=== PATIENT | female | born 1965 | race Hispanic/Latino ===

== ENCOUNTER 2020-06-20 18:08 | Emergency (ER) | payer OTHER ==
[2020-06-20] MEDS ORDERED: ONDANSETRON HCL 4 MG/2 ML VIAL ONE (18:50)
[2020-06-20 19:16] LABS: BASOPHILS % (AUTO) 0.3 % (0.0-5.0); HEMATOCRIT 34.3 % (36-48); LYMPHOCYTES % (AUTO) 8.4 % (21.0-51.0); MEAN CORPUSCULAR HEMOGLOBIN 27.9 pg (27.0-33.0); MEAN CORPUSCULAR HGB CONC 33.5 g/dL (32.0-36.0); MEAN CORPUSCULAR VOLUME 83.3 fL (79-99); MONOCYTES % (AUTO) 1.9 % (3.0-13.0); NEUTROPHILS % (AUTO) 88.9 % (40.0-77.0); PLATELET COUNT (AUTO) 231 K/uL (130-400); RED BLOOD CELL COUNT(AUTO) 4.12 MIL/uL (4.00-5.50); RED CELL DISTRIBUTION WIDTH 14.5 % (11.0-15.5); WHITE BLOOD COUNT (AUTO) 10.7 K/uL (4.8-10.8)
[2020-06-20 19:18] LABS: APPEARANCE,URINE Clear (CLEAR); BILIRUBIN,URINE Negative (NEGATIVE); COLOR,URINE Yellow (YELLOW); GLUCOSE, URINE (UA) Negative (NEGATIVE); KETONES,URINE Negative (NEGATIVE); LEUKOCYTE ESTERASE ,URINE Negative (NEGATIVE); NITRATE,URINE Negative (NEGATIVE); OCCULT BLOOD,URINE Negative (NEGATIVE); PROTEIN,URINE Negative (NEGATIVE); UROBILINOGEN,URINE 0.2 mg/dL (0.2-1.0)
[2020-06-20 19:27] LABS: CREATININE 0.7 mg/dL (0.5-1.5); POTASSIUM 3.6 mmol/L (3.5-5.1)
[2020-06-20 19:31] LABS: ALBUMIN 3.7 g/dL (3.5-5.0); BILIRUBIN,TOTAL 0.2 mg/dL (0.2-1.0); TOTAL PROTEIN, SERUM 7.1 g/dL (6.0-8.3)
[2020-06-20] MEDS ORDERED: LIDOCAINE HCL 2% VISCOUS 15 ML UDCUP ONE (19:58)
[2020-06-20] MEDS ORDERED: MAG HYDROX/AL HYDROX/SIMETH ES 30 ML SUSP UDCUP ONE (19:58)
== END 2020-06-20 21:56 | disposition home or self-care (01) ==
LOC: EDH 18:08
DX: U07.1 COVID-19 (principal); R11.0 Nausea; Z90.49 Acquired absence of other specified parts of digestive tract
CPT/HCPCS: 36415; 80053; 81003; 82150; 83690; 85025; 93005; 96374; 99285; J2405

== ENCOUNTER 2021-04-12 08:59 | Emergency (ER) | payer OTHER ==
[2021-04-12 09:35] LABS: BASOPHILS % (AUTO) 0.6 % (0.0-5.0); EOSINOPHILS % (AUTO) 3.7 % (0.0-8.0); HEMATOCRIT 36.9 % (36-48); LYMPHOCYTES % (AUTO) 20.9 % (21.0-51.0); MEAN CORPUSCULAR HEMOGLOBIN 28.6 pg (27.0-33.0); MEAN CORPUSCULAR HGB CONC 33.6 g/dL (32.0-36.0); MEAN CORPUSCULAR VOLUME 85.2 fL (79-99); MONOCYTES % (AUTO) 9.8 % (3.0-13.0); NEUTROPHILS % (AUTO) 64.5 % (40.0-77.0); PLATELET COUNT (AUTO) 246 K/uL (130-400); RED BLOOD CELL COUNT(AUTO) 4.33 MIL/uL (4.00-5.50); RED CELL DISTRIBUTION WIDTH 13.2 % (11.0-15.5); WHITE BLOOD COUNT (AUTO) 8.1 K/uL (4.8-10.8)
[2021-04-12 09:43] LABS: PROTHROMBIN TIME 10.9 SEC (9.6-11.6)
[2021-04-12 09:44] LABS: PARTIAL THROMBOPLASTIN TIME 26.2 SEC (26.3-35.5)
[2021-04-12 09:50] LABS: ALBUMIN 3.5 g/dL (3.5-5.0); BILIRUBIN,TOTAL 0.4 mg/dL (0.2-1.0); CREATININE 0.7 mg/dL (0.5-1.5); POTASSIUM 3.6 mmol/L (3.5-5.1)
[2021-04-12 09:58] LABS: B-TYPE NATRIURETIC PEPTIDE 37 pg/mL (0-100)
== END 2021-04-12 14:10 | disposition home or self-care (01) ==
LOC: EDH 08:59
DX: S86.811A Strain of other muscle(s) and tendon(s) at lower leg level, right leg, initial encounter (principal); X58.XXXA Exposure to other specified factors, initial encounter; Z90.49 Acquired absence of other specified parts of digestive tract; Y93.89 Activity, other specified; Y92.89 Other specified places as the place of occurrence of the external cause; Y99.8 Other external cause status
CPT/HCPCS: 36415; 71045; 80053; 82550; 83880; 84484; 85025; 85610; 85730; 93005; 93971

== ENCOUNTER 2022-10-31 16:06 | Emergency (ER) | payer BC, OTHER ==
[~2022-10-31] VITALS: Ht 162.6 cm; Wt 102.5 kg
[2022-10-31 16:13] VITALS: BP 157/88
[2022-10-31 17:04] LABS: BASOPHILS % (AUTO) 0.8 % (0.0-5.0); EOSINOPHILS % (AUTO) 1.9 % (0.0-8.0); HEMATOCRIT 38.8 % (36-48); LYMPHOCYTES % (AUTO) 23.2 % (21.0-51.0); MEAN CORPUSCULAR HEMOGLOBIN 28.1 pg (27.0-33.0); MEAN CORPUSCULAR HGB CONC 32.7 g/dL (32.0-36.0); MEAN CORPUSCULAR VOLUME 85.8 fL (79-99); MONOCYTES % (AUTO) 6.7 % (3.0-13.0); NEUTROPHILS % (AUTO) 67.1 % (40.0-77.0); PLATELET COUNT (AUTO) 289 K/uL (130-400); RED BLOOD CELL COUNT(AUTO) 4.52 MIL/uL (4.00-5.50)
[2022-10-31 17:16] LABS: CREATININE 0.6 mg/dL (0.5-1.5); POTASSIUM 3.7 mmol/L (3.5-5.1)
[2022-10-31 17:23] LABS: ALBUMIN 3.8 g/dL (3.5-5.0); TOTAL PROTEIN, SERUM 7.4 g/dL (6.0-8.3)
[2022-10-31] MEDS ORDERED: AMOX500C2 PO (18:50)
[2022-10-31] MEDS ORDERED: DEXAMETHASONE SOD PHOSPHATE 4 MG/ML 1ML VIAL IM ONE (19:00)
== END 2022-10-31 18:59 | disposition home or self-care (01) ==
LOC: EDH 16:06
DX: J02.0 Streptococcal pharyngitis (principal); E78.00 Pure hypercholesterolemia, unspecified; Z79.52 Long term (current) use of systemic steroids; Z90.49 Acquired absence of other specified parts of digestive tract; Z79.899 Other long term (current) drug therapy; Z20.822 Contact with and (suspected) exposure to COVID-19
CPT/HCPCS: 99284; 71045; 87635; 84484; 80053; 83880; 85025; 87880; 36415; 96372; 93005; J1100; C9803

== ENCOUNTER 2024-04-11 17:52 | Inpatient (IN) | payer BC ==
[~2024-04-11] VITALS: Ht 162.6 cm; Wt 109.5 kg
[~2024-04-11 17:52] MED LIST: AMOX500C2 PO
[2024-04-11 18:33] LABS: BASOPHILS # (AUTO) 0.07 K/uL (0.00-0.20); BASOPHILS % (AUTO) 0.5 % (0.0-5.0); EOSINOPHILS # (AUTO) 0.12 K/uL (0.00-0.70); EOSINOPHILS % (AUTO) 0.8 % (0.0-8.0); HEMATOCRIT 41.2 % (36-48); IMMATURE GRANULOCYTE ABSOLUTE 0.06 K/uL (0-1); LYMPHOCYTES % (AUTO) 14.1 % (21.0-51.0); MEAN CORPUSCULAR HEMOGLOBIN 28.6 pg (27.0-33.0); MEAN CORPUSCULAR VOLUME 86.7 fL (79-99); MONOCYTES # (AUTO) 0.9 K/uL (0.1-1.0); MONOCYTES % (AUTO) 6.6 % (3.0-13.0); NEUTROPHILS # (AUTO) 11.1 K/uL (1.8-7.7); NEUTROPHILS % (AUTO) 77.6 % (40.0-77.0); PLATELET COUNT (AUTO) 271 K/uL (130-400); RED BLOOD CELL COUNT(AUTO) 4.75 MIL/uL (4.00-5.50); RED CELL DISTRIBUTION WIDTH 13.2 % (11.0-15.5); WHITE BLOOD COUNT (AUTO) 14.4 K/uL (4.8-10.8)
[2024-04-11 18:47] LABS: CREATININE 0.7 mg/dL (0.5-1.0)
[2024-04-11 18:52] LABS: ALBUMIN 3.8 g/dL (3.5-5.0); BILIRUBIN,TOTAL 0.5 mg/dL (0.2-1.0); TOTAL PROTEIN, SERUM 7.9 g/dL (6.0-8.3)
[2024-04-11] MEDS: 0.9%NACL 1000ML 1,000 ML IV ONE (19:44)
[2024-04-11] MEDS: KETOROLAC 30MG VIAL (30MG/ML) IVP ONE (19:44)
[2024-04-11 20:06] LABS: APPEARANCE,URINE CLEAR (CLEAR); BILIRUBIN,URINE NEGATIVE (NEGATIVE); COLOR,URINE LIGHT-YELLOW (YELLOW); GLUCOSE, URINE (UA) NEGATIVE (NEGATIVE); KETONES,URINE NEGATIVE (NEGATIVE); LEUKOCYTE ESTERASE ,URINE 250 Leu/uL (NEGATIVE); NITRATE,URINE NEGATIVE (NEGATIVE); OCCULT BLOOD,URINE NEGATIVE (NEGATIVE); PROTEIN,URINE NEGATIVE (NEGATIVE); UROBILINOGEN,URINE 0.2 mg/dL (0.2-1.0)
[2024-04-11 20:10] LABS: ADD UA MICROSCOPIC YES
[2024-04-11 20:14] LABS: RBC,URINE 0-1 /HPF (0-1); SQUAMOUS EPITHELIAL CELL,UR FEW /HPF (0-2)
[2024-04-11] MEDS ORDERED: IOHEXOL-350 75 ML VIAL IV ONE (21:15)
[2024-04-11] MEDS: ZOSYN 3.375GM +NS 50ML IVPB SCH (22:00)
[2024-04-11] MEDS: ZOSYN 3.375GM+NS 50ML 50 ML ONE (22:21)
[2024-04-12] VITALS (27 sets, daily range): BP systolic 107–139; BP diastolic 49–86; PULSE 65–83; RESP 14–20; O2SAT 98–99
[2024-04-12] MEDS ORDERED: ONDANSETRON 4MG INJ IV PRN (00:30)
[2024-04-12] MEDS ORDERED: KETOROLAC 15MG/ML VIAL (15MG/ML) IV PRN (00:30)
[2024-04-12] MEDS: 0.9%NACL 1000ML 1,000 ML IV SCH (01:18)
[2024-04-12] MEDS ORDERED: GABA-529 PO (01:53)
[2024-04-12] MEDS: ZOSYN 3.375GM+NS 50ML 50 ML IV SCH (04:19)
[2024-04-12 05:59] LABS: INR <= 0.93 (0.85-1.15); PROTHROMBIN TIME 10.6 SEC (9.6-11.6)
[2024-04-12 06:00] LABS: PARTIAL THROMBOPLASTIN TIME 30.2 SEC (26.3-35.5)
[2024-04-12 06:05] LABS: BASOPHILS # (AUTO) 0.05 K/uL (0.00-0.20); BASOPHILS % (AUTO) 0.4 % (0.0-5.0); EOSINOPHILS # (AUTO) 0.11 K/uL (0.00-0.70); EOSINOPHILS % (AUTO) 0.9 % (0.0-8.0); HEMATOCRIT 36.2 % (36-48); IMMATURE GRANULOCYTE ABSOLUTE 0.03 K/uL (0-1); LYMPHOCYTES # (AUTO) 1.7 K/uL (1.0-4.8); LYMPHOCYTES % (AUTO) 14.9 % (21.0-51.0); MEAN CORPUSCULAR HEMOGLOBIN 28.6 pg (27.0-33.0); MEAN CORPUSCULAR VOLUME 84.2 fL (79-99); MONOCYTES # (AUTO) 0.8 K/uL (0.1-1.0); NEUTROPHILS # (AUTO) 8.9 K/uL (1.8-7.7); NEUTROPHILS % (AUTO) 76.5 % (40.0-77.0); PLATELET COUNT (AUTO) 210 K/uL (130-400); RED CELL DISTRIBUTION WIDTH 13.2 % (11.0-15.5); WHITE BLOOD COUNT (AUTO) 11.7 K/uL (4.8-10.8)
[2024-04-12 08:01] LABS: ERYTHROCYTE SEDIMENTATION RATE 49 MM/HR (0-30)
[2024-04-12 08:18] LABS: ALBUMIN 3.3 g/dL (3.5-5.0); BILIRUBIN,TOTAL 0.6 mg/dL (0.2-1.0); CREATININE 0.6 mg/dL (0.5-1.0); MAGNESIUM 1.9 mg/dL (1.80-2.40); POTASSIUM 3.6 mmol/L (3.5-5.1)
[2024-04-12] MEDS: FAMOTIDINE 20MG VIAL IV SCH (09:11)
[2024-04-12] MEDS ORDERED: LIDOCAINE PF 100MG/5ML (2%) SYRINGE 5ML ONE (09:49)
[2024-04-12] MEDS ORDERED: MIDAZOLAM HCL 1 MG/ML 2ML VIAL ONE (09:49)
[2024-04-12] MEDS ORDERED: SUCCINYLCHOLINE CHLORIDE 20 MG/ML 10 ML VIAL ONE (09:50)
[2024-04-12] MEDS ORDERED: PROPOFOL 10 MG/ML 20ML VIAL IV ONE (09:50)
[2024-04-12] MEDS ORDERED: ROCURONIUM BROMIDE 10MG/1ML 5ML VL ONE (09:50)
[2024-04-12] MEDS ORDERED: FENTANYL CITRATE PF 50 MCG/1 ML 2ML VIAL ONE (09:50)
[2024-04-12] MEDS ORDERED: ONDANSETRON 4MG INJ ONE (10:19)
[2024-04-12] MEDS ORDERED: KETOROLAC 30MG VIAL (30MG/ML) ONE (10:21)
[2024-04-12] MEDS: BUPIVACAINE/PF 0.5% 30ML VIAL ONE (10:59)
[2024-04-12] MEDS: LIDOCAINE 1%-EPI 1:100,000 20 ML VIAL ONE (11:01)
[2024-04-12] MEDS: CEFAZOLIN SODIUM 1 GM VIAL IRRIG ONE (11:02)
[2024-04-12] MEDS ORDERED: NEOSTIGMINE METHYLSULFATE 1MG/ML IV ONE (11:10)
[2024-04-12] MEDS ORDERED: GLYCOPYRROLATE 0.2 MG/ML 5 ML VIAL ONE (11:10)
[2024-04-12] MEDS: IPRATROPIUM/ALBUTEROL SULFATE 3 ML SOLUTION IH ONE (11:53)
[2024-04-12] MEDS ORDERED: HYDROMORPHONE 1 MG INJ IVP PRN (13:00)
[2024-04-12] MEDS: OXYCODONE/ACETAMIN 5/325MG TAB PO PRN (18:35)
[2024-04-13] VITALS: BP 96/58; PULSE 63; RESP 20
[2024-04-13 04:00] VITALS: BP 97/59; PULSE 61; RESP 20
[2024-04-13 05:41] LABS: HEMATOCRIT 33.9 % (36-48); MEAN CORPUSCULAR HEMOGLOBIN 28.4 pg (27.0-33.0); MEAN CORPUSCULAR VOLUME 85.8 fL (79-99); RED BLOOD CELL COUNT(AUTO) 3.95 MIL/uL (4.00-5.50); RED CELL DISTRIBUTION WIDTH 13.2 % (11.0-15.5); WHITE BLOOD COUNT (AUTO) 14.4 K/uL (4.8-10.8)
[2024-04-13 06:02] LABS: CREATININE 0.7 mg/dL (0.5-1.0); POTASSIUM 3.7 mmol/L (3.5-5.1)
[2024-04-13 08:00] VITALS: BP 108/65; PULSE 65; RESP 20
[2024-04-13 08:50] VITALS: O2SAT 99
[2024-04-13 11:30] VITALS: BP 129/75; PULSE 61; RESP 18
[2024-04-13] MEDS ORDERED: GABAPENTIN 100 MG CAPSULE PO PRN (14:30)
== END 2024-04-13 15:40 | disposition home or self-care (01) | DRG 398 ==
LOC: EDH 17:52 → EDHIP 04-12 00:24 → 3CH 04-12 01:30
PROVIDERS: ADMIT Internal Medicine; ATTEND Internal Medicine
PROC: 0DTJ4ZZ Resection of Appendix, Percutaneous Endoscopic Approach (ICD-10-PCS; principal; 2024-04-12 10:04)
DX: K35.80 Unspecified acute appendicitis (principal); Z68.41 Body mass index [BMI] 40.0-44.9, adult; E66.01 Morbid (severe) obesity due to excess calories; K57.30 Diverticulosis of large intestine without perforation or abscess without bleeding; R03.0 Elevated blood-pressure reading, without diagnosis of hypertension; R73.9 Hyperglycemia, unspecified
CPT/HCPCS: 36415; 74177; 80048; 80053; 81001; 83690; 83735; 84145; 85025; 85027; 85610; 85651; 85730; 87088; 94640; 96365; 96366; 96375; A4344; G0378; J0330; J0690; J1885; J2001; J2250; J2405; J2543; J2704; J2710; J3010; J3490; J7030; Q9967; A4215; A4452; A4600; A4649; A4930; C1769; J0665

== ENCOUNTER 2025-04-22 09:27 | Emergency (ER) | payer BC ==
[~2025-04-22] VITALS: Ht 162.6 cm; Wt 108.9 kg
[~2025-04-22 09:27] MED LIST changes: -AMOX500C2 PO; +GABA-529 PO
--- NOTE | 2025-04-22 09:37 | NUR ---
URINE CUP GIVEN FOR UA
[2025-04-22 09:56] LABS: BASOPHILS # (AUTO) 0.07 K/uL (0.00-0.20); BASOPHILS % (AUTO) 0.9 % (0.0-5.0); EOSINOPHILS # (AUTO) 0.19 K/uL (0.00-0.70); EOSINOPHILS % (AUTO) 2.4 % (0.0-8.0); HEMATOCRIT 39.3 % (36-48); IMMATURE GRANULOCYTE ABSOLUTE 0.04 K/uL (0-1); LYMPHOCYTES # (AUTO) 2.1 K/uL (1.0-4.8); LYMPHOCYTES % (AUTO) 27.2 % (21.0-51.0); MEAN CORPUSCULAR HEMOGLOBIN 28.9 pg (27.0-33.0); MEAN CORPUSCULAR HGB CONC 33.6 g/dL (32.0-36.0); MONOCYTES # (AUTO) 0.6 K/uL (0.1-1.0); MONOCYTES % (AUTO) 7.2 % (3.0-13.0); NEUTROPHILS # (AUTO) 4.8 K/uL (1.8-7.7); NEUTROPHILS % (AUTO) 61.8 % (40.0-77.0); PLATELET COUNT (AUTO) 293 K/uL (130-400); RED BLOOD CELL COUNT(AUTO) 4.57 MIL/uL (4.00-5.50); RED CELL DISTRIBUTION WIDTH 13.2 % (11.0-15.5); WHITE BLOOD COUNT (AUTO) 7.8 K/uL (4.8-10.8)
[2025-04-22 09:59] LABS: APPEARANCE,URINE CLEAR (CLEAR); BILIRUBIN,URINE NEGATIVE (NEGATIVE); COLOR,URINE COLORLESS (YELLOW); GLUCOSE, URINE (UA) NEGATIVE (NEGATIVE); KETONES,URINE NEGATIVE (NEGATIVE); LEUKOCYTE ESTERASE ,URINE 500 Leu/uL (NEGATIVE); NITRATE,URINE NEGATIVE (NEGATIVE); OCCULT BLOOD,URINE NEGATIVE (NEGATIVE); PH,URINE 7.5 (5.0-8.0); PROTEIN,URINE NEGATIVE (NEGATIVE); UROBILINOGEN,URINE 0.2 mg/dL (0.2-1.0)
[2025-04-22] MEDS: LACTATED RINGERS 1000ML 1,000 ML IV ONE ×2 (10:00→12:45)
[2025-04-22 10:02] LABS: ADD UA MICROSCOPIC YES
[2025-04-22 10:04] LABS: SQUAMOUS EPITHELIAL CELL,UR FEW /HPF (0-2)
[2025-04-22 10:12] LABS: CREATININE 0.6 mg/dL (0.5-1.0); POTASSIUM 4.1 mmol/L (3.5-5.1)
[2025-04-22 10:16] LABS: ALBUMIN 3.7 g/dL (3.5-5.0); BILIRUBIN,DIRECT 0.1 mg/dL (0.0-0.3); BILIRUBIN,TOTAL 0.3 mg/dL (0.2-1.0); TOTAL PROTEIN, SERUM 7.2 g/dL (6.0-8.3)
[2025-04-22 10:17] LABS: BACTERIA,URINE None Seen /HPF (None Seen)
--- NOTE | 2025-04-22 11:53 | NUR ---
CT DELAY DUE TO PT IN LOBBY
[2025-04-22] MEDS: MAG/ALUM/SIMETH 30 ML UDCUP PO ONE (12:44)
[2025-04-22] MEDS: PANTOPrazole 40 MG/VIAL IVP ONE (12:44)
[2025-04-22] MEDS: DICYCLOMINE HCL 10 MG/5 ML ML PO ONE (12:44)
[2025-04-22] MEDS: FAMOTIDINE 20MG VIAL IV ONE (12:44)
[2025-04-22] MEDS ORDERED: IOHEXOL-350 75 ML VIAL IV ONE (12:50)
--- NOTE | 2025-04-22 13:28 | HMCIMG ---
CT ABDOMEN/PELVIS W/CONTRAST HISTORY: Left abdominal pain COMPARISON: 04/11/2024 TECHNIQUE: Multiple sequential axial images of the abdomen and pelvis were obtained from the dome of the diaphragm through symphysis pubis. Patient was given Omnipaque through intravenous route. Oral contrast was not given. FINDINGS: No pleural effusion is seen bilaterally. There is no evidence of parenchymal disease or pulmonary nodule of the visualized lower lungs. Degenerative changes of the thoracolumbar spine are present. The heart is not enlarged. Liver measuring 19 cm. A small hiatal hernia is seen. The liver, spleen, adrenal glands and pancreas are unremarkable. There is no evidence of hydronephrosis bilaterally. No evidence of renal stone is seen. Fecal material is seen in the colon. There are normal size retroperitoneal and mesenteric lymph nodes. No ascites is seen. Appendix is not seen. There is diverticulosis. Pelvic sidewalls are symmetric bilaterally. Bladder is well distended without wall thickening. IMPRESSION: 1. Diverticulosis. No ascites. CT was performed with one or more following dose reduction techniques: automated exposure control, adjustment of the mA and kv according to patient's size, or use of a iterative reconstruction technique.
[2025-04-22] MEDS ORDERED: PANT20TA PO (14:20)
[2025-04-22] MEDS ORDERED: ONDA-243 PO (14:20)
--- NOTE | 2025-04-22 14:20 | ERN ---
General Chief Complaint: Abdominal Pain Stated Complaint: ABDOMINAL PAIN Time Seen by MD: 10:12 Time Seen by Midlevel: 10:12 Source: patient History of Present Illness Initial Comments The patient is a morbidly obese 59-year-old female presenting to the emergency department for evaluation of midepigastric abdominal pain described as a burning sensation that has been ongoing for several days but has progressively worsened. The pain is worse with food. Allergies: Coded Allergies: No Known Allergies (Unverified Allergy, Unknown, 04/12/21) Home Meds Active Scripts Ondansetron (Ondansetron Odt) 4 Mg Tab.rapdis, 4 MG PO BID for 7 Days, #14 TAB Prov:JOSÉ MIGUEL VICENTE 04/22/25 Pantoprazole Sodium (Protonix) 20 Mg Tablet.dr, 1 TAB PO DAILY for 30 Days, #30 TAB 0 Refills Prov:JOSÉ MIGUEL VICENTE 04/22/25 Reported Medications Gabapentin (Gabapentin) 100 Mg Capsule, 100 MG PO TIDP PRN for LEG PAIN, CAP 04/12/24 Past Medical History Past Medical History: High Cholesterol Past Surgical History: Appendectomy, Cholecystectomy Female( History) History: Not Applicable ROS Dictation CONSTITUTIONAL: Negative except for HPI HEAD/FACE: Negative except for HPI EENT: Negative except for HPI RESPIRATORY: Negative except for HPI GASTROINTESTINAL/ABDOMINAL: Negative except for HPI GENITOURINARY: Negative except for HPI MUSCULOSKELETAL: Negative except for HPI INTEGUMENTARY: Negative except for HPI NEUROLOGICAL/PSYCH: Negative except for HPI HEMATOLOGIC/LYMPHATIC: Negative except for HPI All Systems Negative, Except as noted above. 13 point review of systems assessed and all negative except for above. Physical Exam Physical Exam Dictation Vital Signs reviewed General Appearance: Alert, oriented x 3, no acute distress, well developed, nourished. Head and Face: non-traumatic. Eyes: PERRL, pink conjunctivas, eyelid no trauma, anterior chamber with arcus senilis. Ears: Pinnas intact and no signs of trauma or erythema ear canals clear and no discharge TM no erythema Nose: No discharge, no bleeding. Oropharynx: Mouth normal, tongue pink, pharynx clear,no erythema, tonsils no exudates, no abscesses noted, mucous membrane moist Neck: Supple, non-tender, no thyromegaly, no masses, no JVD, no bruits Breast:Deferred Chest:No tenderness, no crepitus, no paradoxical movement, no retractions Lungs:Clear, well-ventilated, symmetric, no rales, no wheezing, no rhonchi, no stridor, good breath sounds bilaterally Heart: Regular rate, regular rhythm, no murmur, no gallops Vascular: no peripheral edema, Abdomen: Soft, positive bowel sounds, nondistended, no guarding, Midepigastric abdominal tenderness, no rebound, no masses no hepatomegaly, no splenomegaly, no Irizarry's sign, no hernias. Rectal: Deferred Genital: Deferred Neurological: Normal speech, motor function intact, sensory function intact Musculoskeletal: Neck nontender, full range of motion, back nontender, full range of motion, Extremities: nontender, full range of motion Skin: Color pink, dry, no turgor, no rash, no lacerations, no abrasions, no contusions. Lymphatic: Deferred Results Laboratory and Microbiology Lab and Micro Result Laboratory Tests Test 04/22/25 09:38 04/22/25 09:48 Urine Color COLORLESS (YELLOW) Urine Appearance CLEAR (CLEAR) Urine pH 7.5 (5.0-8.0) Urine Specific [place] 1.005 (1.001-1.031) Urine Protein NEGATIVE mg/dL (NEGATIVE) Urine Glucose (UA) NEGATIVE mg/dL (NEGATIVE) Urine Ketones NEGATIVE mg/dL (NEGATIVE) Urine Occult Blood NEGATIVE (NEGATIVE) Urine Nitrate NEGATIVE (NEGATIVE) Urine Bilirubin NEGATIVE mg/dL (NEGATIVE) Urine Urobilinogen 0.2 mg/dL (0.2-1.0) Urine Leukocyte Esterase 500 Yoseph/uL (NEGATIVE) H Urine RBC 2-5 /HPF (0-1) H Urine WBC 6-10 /HPF (0-1) H Urine Squamous Epithelial Cells FEW /HPF (0-2) Urine Bacteria None Seen /HPF (None Seen) White Blood Count 7.8 K/uL (4.8-10.8) Red Blood Count 4.57 MIL/uL (4.00-5.50) Hemoglobin 13.2 g/dL (12.0-16.0) Hematocrit 39.3 % (36-48) Mean Corpuscular Volume 86.0 fL (79-99) Mean Corpuscular Hemoglobin 28.9 pg (27.0-33.0) Mean Corpuscular Hemoglobin Concent 33.6 g/dL (32.0-36.0) Red Cell Distribution Width 13.2 % (11.0-15.5) Platelet Count 293 K/uL (130-400) Mean Platelet Volume 9.7 fL (7.5-10.5) Immature Granulocyte % (Auto) 0.5 % (0-1) Neutrophils (%) (Auto) 61.8 % (40.0-77.0) Lymphocytes (%) (Auto) 27.2 % (21.0-51.0) Monocytes (%) (Auto) 7.2 % (3.0-13.0) Eosinophils (%) (Auto) 2.4 % (0.0-8.0) Basophils (%) (Auto) 0.9 % (0.0-5.0) Neutrophils # (Auto) 4.8 K/uL (1.8-7.7) Lymphocytes # (Auto) 2.1 K/uL (1.0-4.8) Monocytes # (Auto) 0.6 K/uL (0.1-1.0) Eosinophils # (Auto) 0.19 K/uL (0.00-0.70) Basophils # (Auto) 0.07 K/uL (0.00-0.20) Absolute Immature Granulocyte (auto 0.04 K/uL (0-1) Nucleated Red Blood Cells 0.0 % (0.0-0.19) Sodium Level 142 mmol/L (136-145) Potassium Level 4.1 mmol/L (3.5-5.1) Chloride Level 108 mmol/L (101-111) Carbon Dioxide Level 28 mmol/L (21-32) Blood Urea Nitrogen 13 mg/dL (7-18) Creatinine 0.6 mg/dL (0.5-1.0) Glomerular Filtration Rate Calc 105 mL/min (>90) Random Glucose 83 mg/dL (70-105) Lactic Acid Level 1.4 mmol/L (0.8-2.5) Total Calcium 8.8 mg/dL (8.5-10.1) Total Bilirubin 0.3 mg/dL (0.2-1.0) Direct Bilirubin 0.1 mg/dL (0.0-0.3) Aspartate Amino Transf (AST/SGOT) 19 U/L (10-37) Alanine Aminotransferase (ALT/SGPT) 27 U/L (12-78) Alkaline Phosphatase 92 U/L (50-136) Total Protein 7.2 g/dL (6.0-8.3) Albumin 3.7 g/dL (3.5-5.0) Lipase 31 U/L (16-77) Labs Reviewed?: Yes MDM MDM: 59-year-old female presenting to the ER for evaluation of midepigastric abdominal pain. Pain is described as a burning sensation. On physical examination patient has mild midepigastric abdominal tenderness with no rebound or guarding. CBC and chemistries unremarkable. Symptoms are consistent with gastritis. Patient was given GI cocktail and reports feeling significantly improved. We will discharged home with supportive management. CT scan is negative Differential diagnosis: Gastritis, pancreatitis, gastroenteritis There are no social concerns with this patient. Prescription drug management Prescriptions will include: Protonix and Zofran Medical management and examination interpretation discussions were had by me with other qualified healthcare professionals as indicated for the patient's care. ED Course Orders Procedure Category Date Status Time Cbc With Differential LAB 04/22/25 Complete 09:32 Urinalysis Profile LAB 04/22/25 Complete 09:32 Lipase LAB 04/22/25 Complete 09:32 Basic Metabolic Panel LAB 04/22/25 Complete 09:32 Lactated Ringers PHA 04/22/25 Complete 1000ml (Lactated 10:00 Hepatic Function Panel LAB 04/22/25 Complete 09:32 Lactic Acid LAB 04/22/25 Complete 09:32 Mag/Alum/Simeth 30ml PHA 04/22/25 Complete (Maalox Plus 30ml) 10:00 Dicyclomine Hcl PHA 04/22/25 Complete (Bentyl 10mg/5ml 10:00 Famotidine 20mg Vial PHA 04/22/25 Complete (Pepcid 20mg Vial) 10:00 Pantoprazole 40mg Inj PHA 04/22/25 Complete (Protonix 40mg Inj 10:00 Lactated Ringers PHA 04/22/25 Complete 1000ml (Lactated 10:00 Ct Abdomen/Pelvis CT 04/22/25 Resulted W/Contrast 09:45 Culture Urine LYNN 04/22/25 In Process 10:02 Iohexol (Omnipaque) PHA 04/22/25 Complete 12:50 Current Medications Medications (Trade) Dose Ordered Sig/Alcon Route PRN Reason Start Time Stop Time Status Last Admin Dose Admin Al Hydroxide/Mg Hydroxide (MAALox PLUS 30ML) 30 ml ONCE ONCE PO 04/22/25 10:00 04/22/25 10:01 DC 04/22/25 12:44 Dicyclomine HCl (Bentyl 10mg/5ml Syrup) 10 mg ONCE ONCE PO 04/22/25 10:00 04/22/25 10:01 DC 04/22/25 12:44 Famotidine (Pepcid 20mg Vial) 20 mg ONCE ONCE IV 04/22/25 10:00 04/22/25 10:01 DC 04/22/25 12:44 Iohexol (Omnipaque) 75 ml STK-MED ONCE IV 04/22/25 12:50 04/22/25 12:50 DC Lactated Ringer's 1,000 ml @ 0 mls/hr ONCE ONCE IV 04/22/25 10:00 04/22/25 10:01 DC 04/22/25 12:45 Lactated Ringer's 1,000 ml @ 0 mls/hr ONCE ONCE IV 04/22/25 10:00 04/22/25 10:01 DC Pantoprazole Sodium (PROTonix 40MG INJ) 40 mg ONCE ONCE IVP 04/22/25 10:00 04/22/25 10:01 DC 04/22/25 12:44 Vital Signs Date Time Temp Pulse Resp B/P (MAP) Pulse Ox O2 Delivery O2 Flow Rate FiO2 04/22/25 13:44 96.4 55 16 146/64 100 Room Air* 0 21 04/22/25 12:30 55 16 127/60 97 Room Air* 0 21 04/22/25 09:28 97.5 66 14 152/88 96 Room Air 0 DX & DISP Disposition: Discharge Departure Impression: Primary Impression: Gastritis Condition: Stable Scripts Ondansetron (Ondansetron Odt) 4 Mg Tab.rapdis 4 MG PO BID for 7 Days, #14 TAB Prov: JOSÉ MIGUEL VICENTE 04/22/25 Pantoprazole Sodium (Protonix) 20 Mg Tablet.dr 1 TAB PO DAILY for 30 Days, #30 TAB 0 Refills Prov: JOSÉ MIGUEL VICENTE 04/22/25 Referrals: SYEDA FELIX DO (PCP) MICHELLE DILLON MD Time of Disposition: 14:14 I have reviewed the case, and I agree with, Diagnosis and Plan I performed the substantive portion of the visit. I have reviewed and personally made and approve the management plan that is documented in the note by myself or the MICHAEL. I acknowledge for responsibility for the patient's management plan. JOSÉ MIGUEL VICENTE April 22, 2025 14:20 NAYELI SAMUELS DO April 22, 2025 14:31
[2025-04-22 14:55] VITALS: BP 131/73; PULSE 55; RESP 17; TEMP 96.5; O2SAT 100
== END 2025-04-22 15:04 | disposition home or self-care (01) ==
LOC: EDH 09:27
DX: K29.70 Gastritis, unspecified, without bleeding (principal); E66.01 Morbid (severe) obesity due to excess calories; E78.00 Pure hypercholesterolemia, unspecified; Z79.899 Other long term (current) drug therapy; Z90.49 Acquired absence of other specified parts of digestive tract; Z68.41 Body mass index [BMI] 40.0-44.9, adult
CPT/HCPCS: 99284; 74177; 96374; 96361; 96375; 80076; 80048; 83690; 85025; 87086; 83605; 81001; 36415; J7120; J3490; J2470; Q9967